=== PATIENT | male | born 1975 ===

== ENCOUNTER 2022-03-18 06:30 | Day surgery (SDC) | payer OTHER ==
[2022-03-18] MEDS ORDERED: ULTRAM50 MG PO (12:14)
[2022-03-18] MEDS ORDERED: TYLENOL ARTHRI650 MG PO (12:14)
[2022-03-18] MEDS ORDERED: MIRALAX17 GM PO (12:14)
[2022-03-18] MEDS ORDERED: KETO10TA2 PO (13:35)
== END 2022-03-18 17:00 | disposition home or self-care (01) ==
LOC: CIR.AMB 06:30
PROVIDERS: ATTEND Surgery
DX: K40.90 Unilateral inguinal hernia, without obstruction or gangrene, not specified as recurrent (principal); Z20.822 Contact with and (suspected) exposure to COVID-19; Z87.891 Personal history of nicotine dependence
CPT/HCPCS: 49650; C1781